=== PATIENT | male | born 1965 | race African-American/Black ===

== ENCOUNTER 2019-11-12 16:55 | Emergency (ER) | payer MEDICARE, MEDICAID ==
[~2019-11-12] VITALS: Ht 188 cm; Wt 86.0 kg
[~2019-11-12 16:55] MED LIST: KEPP500 PO
[2019-11-12] MEDS ORDERED: SODIUM CHLORIDE 0.9% 1,000 ML IV ONE (18:18)
[2019-11-12] MEDS ORDERED: ONDANSETRON HCL 4MG/2ML INJ IV STA (18:18)
[2019-11-12] MEDS ORDERED: LEVETIRACETAM 1000MG/100ML 100 ML IV ONE (18:30)
[2019-11-12 19:04] LABS: BASOPHILS % 0.6 % (0.0-2.0); EOSINOPHILS % 0.4 % (0.0-5.0); HEMATOCRIT. 40.9 % (42.0-52.0); HEMOGLOBIN. 13.2 g/dL (14.0-18.0); LYMPHOCYTES % 30.8 % (20.0-50.0); MEAN CORPUSCULAR HEMOGLOBIN 31.5 pg (28.0-32.0); MEAN CORPUSCULAR VOLUME 97.7 fL (80.0-94.0); NEUTROPHILS % 63.2 % (40.0-76.0); PLATELET 174 x1000/uL (130-400); RED BLOOD CELL COUNT 4.19 mill/uL (4.7-6.1)
[2019-11-12 19:05] LABS: CHLORIDE 110 mEq/L (98-107)
[2019-11-12 19:10] LABS: ETHANOL BLOOD < 10 mg/dL
[2019-11-12 20:48] LABS: CLARITY URINE CLEAR (CLEAR); COLOR URINE YELLOW (YELLOW); KETONES URINE TRACE (NEGATIVE); LEUKOCYTE ESTERASE URINE NEGATIVE (NEGATIVE); NITRITE URINE NEGATIVE (NEGATIVE); OCCULT BLOOD URINE NEGATIVE (NEGATIVE); PH URINE 6.5 (4.5-8.0); PROTEIN URINE TRACE (NEGATIVE); SPECIFIC GRAVITY URINE 1.024 (1.005-1.030)
[2019-11-12 21:31] LABS: *AMPHETAMINES SCREEN URINE NEGATIVE (NEGATIVE); *BARBITURATES SCREEN URINE NEGATIVE (NEGATIVE); *COCAINE SCREEN URINE NEGATIVE (NEGATIVE); CANNABINOID URINE SCREEN PRESUMTIVE POSITIVE (NEGATIVE); METHADONE URINE SCREEN NEGATIVE (NEGATIVE); OPIATES URINE SCREEN NEGATIVE (NEGATIVE); PHENCYCLIDINE URINE SCREEN NEGATIVE (NEGATIVE)
[2019-11-12 21:32] LABS: *BENZODIAZEPINES SCREEN URINE NEGATIVE (NEGATIVE)
[2019-11-12 21:35] VITALS: BP 118/67
== END 2019-11-12 21:35 | disposition home or self-care (01) ==
LOC: ER 16:55
DX: R56.9 Unspecified convulsions (principal); F12.10 Cannabis abuse, uncomplicated
CPT/HCPCS: 36415; 70450; 80053; 80305; 80320; 81003; 85025; 96374; 96375; 99285; J1953; J2405; J7030; G0480

== ENCOUNTER 2019-12-21 08:39 | Emergency (ER) | payer MEDICARE, MEDICAID ==
[~2019-12-21] VITALS: Ht 177.8 cm; Wt 68.0 kg
[2019-12-21 08:47] VITALS: BP 113/78
== END 2019-12-21 09:30 | disposition home or self-care (01) ==
LOC: ER 08:39
DX: L73.9 Follicular disorder, unspecified (principal); G40.909 Epilepsy, unspecified, not intractable, without status epilepticus
CPT/HCPCS: 99283